=== PATIENT | female | born 2000 | race African-American/Black ===

== ENCOUNTER 2023-12-17 18:49 | Emergency (ER) | payer OTHER ==
[~2023-12-17] VITALS: Ht 185.4 cm; Wt 131.5 kg
[2023-12-17 18:54] VITALS: BP_SYST 137; PULSE 78; RESP 16; TEMP 97.7; O2SAT 98
[2023-12-17] MEDS: NACL 0.9% 1,000 ML IV ONE (19:41)
[2023-12-17 19:54] LABS: PLATELET COUNT (AUTO) 355 K/uL (130-430)
[2023-12-17 20:00] LABS: BASOPHILS # (AUTO) 0.2 K/uL (0.0-0.2); BASOPHILS % (AUTO) 1.5 % (0.0-2.0); EOSINOPHILS # (AUTO) 0.4 K/uL (0.0-0.4); EOSINOPHILS % (AUTO) 3.7 % (0.0-4.0); HEMATOCRIT 37.6 % (36-48); LYMPHOCYTES # (AUTO) 2.9 K/uL (1.0-5.5); MEAN CORPUSCULAR HEMOGLOBIN 23 pg (27-31); MEAN CORPUSCULAR HGB CONC 32 % (32-36); MEAN CORPUSCULAR VOLUME 72 fL (79.0-98.0); MONOCYTES # (AUTO) 0.6 K/uL (0.0-1.0); MONOCYTES % (AUTO) 5.9 % (1.7-9.3); NEUTROPHILS # (AUTO) 6.3 K/uL (1.8-7.7); NEUTROPHILS % (AUTO) 60.9 % (40.0-70.0); RED BLOOD CELL COUNT(AUTO) 5.22 MIL/uL (4.2-6.2); RED CELL DISTRIBUTION WIDTH 17.9 % (9.0-15.0); WHITE BLOOD COUNT (AUTO) 10.4 K/uL (4.8-10.8)
[2023-12-17 20:03] LABS: BILIRUBIN,URINE NEGATIVE (NEGATIVE); BLOOD, URINE NEGATIVE (NEGATIVE); COLOR,URINE YELLOW (YELLOW); GLUCOSE,URINE NEGATIVE (NEGATIVE); KETONES,URINE NEGATIVE (NEGATIVE); LEUKOCYTE ESTERASE ,URINE NEGATIVE (NEGATIVE); NITRITE, URINE NEGATIVE (NEGATIVE); PROTEIN URINE NEGATIVE (NEGATIVE); UROBILINOGEN,URINE 0.2 (0.2-1.0)
[2023-12-17 20:07] LABS: CLARITY/URINE SLIGHTLY HAZY (CLEAR)
[2023-12-17 20:14] LABS: ALBUMIN 3.9 g/dL (3.4-4.8); BILIRUBIN,DIRECT 0.1 mg/dL (0.0-0.3); CALCIUM 9.2 mg/dL (8.4-11.0); CREATININE 0.92 mg/dL (0.55-1.30); POTASSIUM 4.1 mmol/L (3.5-5.1); TOTAL BILIRUBIN 0.2 mg/dL (0.0-1.0); TOTAL PROTEIN, SERUM 7.9 g/dL (6.4-8.3)
[2023-12-17 21:42] VITALS: BP_SYST 117; PULSE 72; RESP 18; TEMP 98.7; O2SAT 97
[2023-12-17 22:12] LABS: ANISOCYTOSIS 1+; HYPOCHROMASIA 1+; OVALOCYTES MODERATE; TARGET CELLS FEW
== END 2023-12-17 21:42 | disposition home or self-care (01) ==
LOC: SED 18:49
DX: E86.0 Dehydration (principal); R53.1 Weakness; M79.10 Myalgia, unspecified site; Z91.018 Allergy to other foods
CPT/HCPCS: 99283; 96360; 80076; 80048; 81001; 82550; 85025; 36415; 81003; J7030